=== PATIENT | female | born 1940 | race Two or more races ===

== ENCOUNTER 2018-08-28 13:27 | Day surgery (SDC) | payer MEDICARE, OTHER, BC ==
[2018-08-28] MEDS ORDERED: PROPOFOL 10 MG/ML VIAL IV ONE (13:28)
[2018-08-28] MEDS ORDERED: LIDOCAINE 2% MDV (20MG/ML) 20ML VIAL IV ONE (13:28)
--- NOTE | 2018-09-01 09:30 | Operative Note ---
DATE OF SURGERY: 08/28/18 OPERATION: Surveillance COLONOSCOPY. PREOPERATIVE DIAGNOSIS: Personal history of colon polyps. POSTOPERATIVE DIAGNOSIS: Normal exam. PREPARATION QUALITY: Good to excellent. ESTIMATED BLOOD LOSS: None. COMPLICATIONS: None apparent. SPECIMENS: None. PROCEDURE: After informed consent was obtained from the patient, she was placed in the left lateral decubitus position in the endoscopy suite, sedated and monitored by the department of anesthesia. Digital rectal examination was unremarkable. A well-lubricated [id number] colonoscope was inserted into the rectum and advanced to the cecum. Transabdominal pressure was required to intubate the cecal cap. The cecum, cecal bulb, ileocecal valve, appendiceal orifice, ascending colon, transverse colon, descending colon, sigmoid colon, and rectum were free of inflammatory changes, mass lesions, or polyps. Forward and J-turn views of the rectum and anorectum were unremarkable. The endoscope was straightened, the rectal ampulla deflated, and the endoscope was removed. RECOMMENDATIONS: The patient should resume her medications and diet. I would recommend a repeat colonoscopy in 5 years should her health allow. She can decide at that time if she wishes to proceed. As always, thank you for allowing me to participate in the healthcare of your patients. CC: DO AISLINN Ang
== END 2018-08-28 14:36 | disposition home or self-care (01) ==
LOC: HOP 13:27
PROVIDERS: ATTEND Internal Medicine Gastroenterology
DX: Z12.11 Encounter for screening for malignant neoplasm of colon (principal); Z86.010 Personal history of colon polyps; I10 Essential (primary) hypertension; E78.00 Pure hypercholesterolemia, unspecified
CPT/HCPCS: 00812; G0105